=== PATIENT | female | born 1940 | race Two or more races ===

== ENCOUNTER 2022-07-27 12:22 | Emergency (ER) | payer OTHER ==
[~2022-07-27] VITALS: Ht 152.4 cm; Wt 71.6 kg
[2022-07-27] MEDS ORDERED: KETAMINE 50mg/ML 10ml Vial (500mg/10ml) IV ONE (14:30)
[2022-07-27 16:45] VITALS: BP 188/85
== END 2022-07-27 17:07 | disposition home or self-care (01) ==
LOC: ER 12:22
DX: S43.004A Unspecified dislocation of right shoulder joint, initial encounter (principal); W01.0XXA Fall on same level from slipping, tripping and stumbling without subsequent striking against object, initial encounter; Y93.89 Activity, other specified; Y92.89 Other specified places as the place of occurrence of the external cause; Y99.8 Other external cause status
CPT/HCPCS: 23650; 73030; 73060; 99152